=== PATIENT | male | born 1955 | race Asian ===

== ENCOUNTER 2018-02-22 13:17 | Emergency (ER) | payer SELFPAY ==
[~2018-02-22] VITALS: Ht 177.8 cm; Wt 88.0 kg
[2018-02-22] MEDS ORDERED: TDAP DIPH,PERTUSS,TET VAC/PF 0.5 ML DISP.SYRIN IM ONE ×2 (13:30→14:12)
--- NOTE | 2018-02-22 14:12 | NUR ---
DOCTOR ELVIRA IN ROOM WITH LACERATION KIT
--- NOTE | 2018-02-22 14:27 | NUR ---
PATIENT STATES OBTAINED LACERATION FROM SAW BY DOING SOME HOME IMPORVEMENTS.
[2018-02-22] MEDS ORDERED: KETOROLAC TROMETHAMINE 30 MG INJ ONE (15:15)
[2018-02-22] MEDS ORDERED: KETOROLAC TROMETHAMINE 30 MG INJ IM ONE (15:15)
--- NOTE | 2018-02-22 15:34 | NUR ---
MSE COMPLETED, DRESSING TO RT INDEX FINGER, ACI/RX X2 GIVEN. PT AMBULATED W/O DIFF/TOOK ALL BELONGINGS
[2018-02-22 15:36] VITALS: BP 161/89
== END 2018-02-22 15:37 | disposition home or self-care (01) ==
LOC: ER 13:19
DX: S61.211A Laceration without foreign body of left index finger without damage to nail, initial encounter (principal); S61.213A Laceration without foreign body of left middle finger without damage to nail, initial encounter; E78.00 Pure hypercholesterolemia, unspecified; W27.0XXA Contact with workbench tool, initial encounter; Y93.89 Activity, other specified; Y92.89 Other specified places as the place of occurrence of the external cause; Y99.8 Other external cause status
CPT/HCPCS: 12002; 73140; 90471; 90715; 96372; 99283; J1885; A4217; A4663; J3490